=== PATIENT | female | born 1995 | race Caucasian/White ===

== ENCOUNTER 2018-12-14 17:35 | Outpatient (REF) | payer SELFPAY ==
[2018-12-14 17:28] LABS: *AMPHETAMINES SCREEN URINE Negative (Negative); *BARBITURATES SCREEN URINE Negative (Negative); *BENZODIAZEPINES SCREEN URINE Negative (Negative); Cannabinoids THC Negative (Negative); Cocaine Screen,Urine Negative (Negative); METHADONE URINE SCREEN Negative (Negative); OPIATES URINE SCREEN Negative (Negative)
[2018-12-14 17:32] LABS: Tricyclic Antidepressants Negative (Negative)
[2018-12-17 14:13] LABS: Chlamydia Result Negative; GC Result Negative; Specimen Description CERVIX
[2018-12-19 09:22] LABS: Buprenorphine Negative; Norbuprenorphine Negative
== END 2018-12-14 17:55 ==
LOC: LBN 17:35
PROVIDERS: PCP Specialist/Technologist Athletic Trainer; Visit Provider Advanced Practice Midwife
DX: Z34.90 Encounter for supervision of normal pregnancy, unspecified, unspecified trimester (principal)
CPT/HCPCS: 80307; 87491; 87591; 87086

== ENCOUNTER 2019-01-04 08:42 | Outpatient (CLI) | payer SELFPAY ==
[2019-01-04 09:57] LABS: Abs Immature Grans 0.02 k/cumm (0.0-0.09); Absolute Basophil Count 0.01 k/cumm (0.0-0.2); Absolute Eosinophil Count 0.03 k/cumm (0.0-0.7); Absolute Lymphocyte Count 1.17 k/cumm (1.2-3.4); Absolute Monocyte Count 0.25 k/cumm (0.11-0.7); Absolute Neutrophil Count 3.61 k/cumm (1.2-6.7); Basophils % 0.2; Eosinophils % 0.6; HCT 35.9 % (36.0-46.0); HGB 12.1 g/dL (12.0-15.5); Immature Grans % 0.4; Mean Corp. HGB Concentration 33.7 g/dL (32.0-36.0); Mean Corpuscular Hemoglobin 31.2 pg (27.0-33.0); Mean Corpuscular Volume 92.5 fL (80-95); Mean Platelet Volume 9.9 fL (8.0-11.0); Monocytes % 4.9; Neutrophils % 70.9; Platelet Count 211 x1000/uL (130-400); RBC 3.88 m/cumm (4.00-5.20); RBC Distribution Width 12.8 % (11.7-14.6); White Blood Cell Count 5.09 k/cumm (4.4-10.8)
[2019-01-04 10:51] LABS: TSH (W/Ref FT4) 1.04 uIU/mL (0.358-3.74)
[2019-01-05 10:18] LABS: HIV-1/2 Ag & Ab Screen Negative (NEGAT)
[2019-01-07 10:08] LABS: Hepatitis B Surface Ag Negative (NEGAT)
[2019-01-07 10:32] LABS: Hepatitis C Ab w Rflx HCV PCR Negative (NEGAT)
[2019-01-07 16:34] LABS: Syphilis Serology (RPR) Negative (Negative)
[2019-01-08 07:05] LABS: Rubella IgG Ab (UVM) Positive; Varicella IgG Antibody Positive
== END 2019-01-04 09:02 ==
PROVIDERS: Obstetrics & Gynecology; PCP Specialist/Technologist Athletic Trainer; Visit Provider Advanced Practice Midwife
DX: Z34.91 Encounter for supervision of normal pregnancy, unspecified, first trimester (principal); Z01.84 Encounter for antibody response examination; Z11.59 Encounter for screening for other viral diseases; Z11.4 Encounter for screening for human immunodeficiency virus [HIV]
CPT/HCPCS: 36415; 80055; 86787; 86803; 86850; 86900; 86901; 87340; 87389; 84443; 86592; 86762

== ENCOUNTER 2019-01-16 01:30 | Outpatient (CLI) | payer MEDICAID, SELFPAY ==
[2019-01-16 11:20] LABS: Glucose,1 Hr (Glucola) 117 mg/dL (80-140)
== END 2019-01-16 01:50 ==
PROVIDERS: Advanced Practice Midwife; PCP Specialist/Technologist Athletic Trainer; Visit Provider Advanced Practice Midwife
DX: Z34.91 Encounter for supervision of normal pregnancy, unspecified, first trimester (principal); Z68.36 Body mass index [BMI] 36.0-36.9, adult
CPT/HCPCS: 36415; 82950

== ENCOUNTER 2019-02-12 00:08 | Outpatient (CLI) | payer MEDICAID, SELFPAY ==
--- NOTE | 2019-02-12 09:25 | DI.US_ITS ---
SYMPTOMS/DIAGNOSIS: 18-WEEK ANATOMY SURVEY, Z34.90 OBSTETRICAL ULTRASOUND: Predicted Gestational Age: Indication/History: 18+3 Wks Range: 17+3 to 19+3 Prior US done on: Determined by: First US LMP History EDC by prior US: For multiple gestations: Baby PLACENTA: Grade: I Location: X Anterior Posterior PRESENTATION: RT LT LOW LYING PREVIA Cephalic Trans (Head RT LT ) Varied X Breech BIOMETRY: Anatomy Identified: BPD: 42 mm 18+4 wks 4-chamber Heart X Heart Rate 162 BPM HC: 158 mm 18+5 wks LVOT X Post Fossa X AC: 134 mm 18+6 wks RVOT X Ventricles X FL: 28 mm 18+5 wks Stomach X Nose X Bladder X Lips X Cisterna Magna: 3.4 mm CI: 77 Kidneys X Palate X Cerebellum: 1.88 cm 3-vessel cord X Spine X EFW: 256 grms 66% Cord Insertion X NS= not seen Composite Age (US) 18+5 wks Many abnormalities cannot be diagnosed. A normal exam does not exclude congenital abnormality. EDC by US: 07/11/19 Amniotic Fluid Index: Normal : Biophysical Profile: Score 0/2 CRYSTAL (>2cm) Respirations (>30 sec) Body flexion/extension Extremity flexion/extension TOTAL SCORE COMMENTS: Routine examination was performed. There is a single living intrauterine gestation. Estimated sonographic age is 18 weeks 5 days. Postvoid transvaginal images of the placenta show no evidence of previa. IMPRESSION: Single living intrauterine gestation. Estimated sonographic age is 18 weeks 5 days.
== END 2019-02-12 00:28 ==
PROVIDERS: PCP Specialist/Technologist Athletic Trainer; Visit Provider Advanced Practice Midwife
DX: Z34.92 Encounter for supervision of normal pregnancy, unspecified, second trimester (principal)
CPT/HCPCS: 76805

== ENCOUNTER 2019-04-09 01:38 | Outpatient (CLI) | payer MEDICAID, SELFPAY ==
[2019-04-09 11:31] LABS: HCT 36.6 % (36.0-46.0); Mean Corp. HGB Concentration 32.8 g/dL (32.0-36.0); Mean Corpuscular Hemoglobin 31.3 pg (27.0-33.0); Mean Corpuscular Volume 95.6 fL (80-95); Mean Platelet Volume 9.9 fL (8.0-11.0); Platelet Count 218 x1000/uL (130-400); RBC 3.83 m/cumm (4.00-5.20); RBC Distribution Width 13.3 % (11.7-14.6)
[2019-04-09 11:48] LABS: Glucose,1 Hr (Glucola) 108 mg/dL (80-140)
== END 2019-04-09 01:58 ==
PROVIDERS: PCP Specialist/Technologist Athletic Trainer; Visit Provider Obstetrics & Gynecology
DX: Z34.93 Encounter for supervision of normal pregnancy, unspecified, third trimester (principal)
CPT/HCPCS: 36415; 82950; 85027

== ENCOUNTER 2019-06-13 16:10 | Outpatient (REF) | payer MEDICAID, SELFPAY ==
[2019-06-13 17:48] LABS: *AMPHETAMINES SCREEN URINE Negative (Negative); *BENZODIAZEPINES SCREEN URINE Negative (Negative); Cannabinoids THC Negative (Negative); Cocaine Screen,Urine Negative (Negative); METHADONE URINE SCREEN Negative (Negative); OPIATES URINE SCREEN Negative (Negative)
[2019-06-13 17:49] LABS: *BARBITURATES SCREEN URINE Negative (Negative); Tricyclic Antidepressants Negative (Negative)
[2019-06-18 13:29] LABS: Buprenorphine Negative; Norbuprenorphine Negative
== END 2019-06-13 16:30 ==
LOC: LBN 16:10
PROVIDERS: PCP Specialist/Technologist Athletic Trainer; Visit Provider Obstetrics & Gynecology Gynecology
DX: Z34.93 Encounter for supervision of normal pregnancy, unspecified, third trimester (principal); Z36.85 Encounter for antenatal screening for Streptococcus B
CPT/HCPCS: 80307; 87081

== ENCOUNTER 2019-07-06 13:25 | Observation (INO) | payer MEDICAID, SELFPAY | END 2019-07-06 16:30 | disposition home or self-care (01) | PROVIDERS: Admitting Provider Obstetrics & Gynecology Gynecology; PCP Specialist/Technologist Athletic Trainer; Visit Provider Obstetrics & Gynecology Gynecology | DX: O47.1 False labor at or after 37 completed weeks of gestation (principal); Z3A.39 39 weeks gestation of pregnancy | CPT/HCPCS: G0378 ==

== ENCOUNTER 2019-07-06 22:54 | Inpatient (IN) | payer MEDICAID, SELFPAY ==
[2019-07-07] MEDS: Normal Saline Flush 10 ML SYR IVP (04:13)
[2019-07-07] MEDS: Lactated Ringers 1,000 ML 125 ML IV ×2 (04:13→06:32)
[2019-07-07] MEDS: FentaNYL/ROPIvacaine 2 mcg/ml and 0.1% 200 ML CADD Cassette EP (05:01)
[2019-07-07 06:39] LABS: HCT 39.7 % (36.0-46.0); HGB 13.2 g/dL (12.0-15.5); Mean Corp. HGB Concentration 33.2 g/dL (32.0-36.0); Mean Corpuscular Hemoglobin 30.7 pg (27.0-33.0); Mean Corpuscular Volume 92.3 fL (80-95); Mean Platelet Volume 10.3 fL (8.0-11.0); Platelet Count 215 x1000/uL (130-400); White Blood Cell Count 15.85 k/cumm (4.4-10.8)
[2019-07-08 08:15] LABS: HCT 35.6 % (36.0-46.0); HGB 11.4 g/dL (12.0-15.5); Mean Corpuscular Hemoglobin 30.1 pg (27.0-33.0); Mean Corpuscular Volume 93.9 fL (80-95); Mean Platelet Volume 9.8 fL (8.0-11.0); Platelet Count 196 x1000/uL (130-400); RBC 3.79 m/cumm (4.00-5.20); RBC Distribution Width 14.2 % (11.7-14.6); White Blood Cell Count 9.73 k/cumm (4.4-10.8)
== END 2019-07-08 18:58 | disposition home or self-care (01) | DRG 807 ==
PROVIDERS: Admitting Provider Obstetrics & Gynecology Gynecology; PCP Specialist/Technologist Athletic Trainer; Visit Provider Obstetrics & Gynecology Gynecology
DX: O62.1 Secondary uterine inertia (principal); Z37.0 Single live birth; Z3A.39 39 weeks gestation of pregnancy; O76 Abnormality in fetal heart rate and rhythm complicating labor and delivery
CPT/HCPCS: 85027; 86850; 86900; 86901; J3490

== ENCOUNTER 2023-03-27 13:55 | Outpatient (REF) | payer OTHER, SELFPAY | END 2023-03-27 13:56 | disposition home or self-care (01) | LOC: LBN 13:55 | PROVIDERS: PCP Nurse Practitioner Family; Visit Provider Nurse Practitioner Family | DX: K08.89 Other specified disorders of teeth and supporting structures; K04.7 Periapical abscess without sinus | CPT/HCPCS: 87070; 87205 ==

== ENCOUNTER 2023-05-15 10:42 | Outpatient (REF) | payer OTHER, SELFPAY | END 2023-05-15 10:43 | disposition home or self-care (01) | LOC: LBN 10:42 | PROVIDERS: PCP Nurse Practitioner Family; Visit Provider Physician Assistant | DX: J02.9 Acute pharyngitis, unspecified (principal) | CPT/HCPCS: 87077; 87070 ==

== ENCOUNTER 2025-05-06 16:38 | Outpatient (REF) | payer OTHER, SELFPAY ==
--- NOTE | 2025-05-06 09:40 | PAPFT_PTH ---
PATIENT: Rona Diaz LOC: [facility] U#:[id number] AGE/SX: 29/F ROOM: RE05/06/[address]: Izabella Culver V : 1995 BED: DIS: 05/06/2025 SPEC #: [id number] RECD: 05/06/25 18:13 STATUS: SHAY REQ #: [id number] [place]: 05/06/25 09:[address]: Izabella Culver V DEPT: [facility] Cytology RECD BY: Toyin Lantigua ENTERED: 05/06/25 18:13 SP TYPE: PAPFT OTHR DR: Monica Anguiano Tissues: 1 - CX/ENDOCX FOR PAP SMEARS Procedures: PAP THIN PREP/[facility] Screening HPV DNA PROBE Comments: [id number] (HPV 16 & 18/45)
== END 2025-05-06 16:39 | disposition home or self-care (01) ==
LOC: NCHCN 16:38
PROVIDERS: PCP Nurse Practitioner Family; Visit Provider Family Medicine
DX: Z12.4 Encounter for screening for malignant neoplasm of cervix (principal); Z01.419 Encounter for gynecological examination (general) (routine) without abnormal findings
CPT/HCPCS: 88142; 87624